=== PATIENT | male | born 1960 | race Caucasian/White ===

== ENCOUNTER 2021-12-07 14:28 | Emergency (ER) | payer BC ==
[2021-12-07] MEDS: Lidocaine 1% 20 ML MDV INJECT ONE (15:55)
[2021-12-07] MEDS: Lidocaine 1% 5 ML VIAL INJECT ONE (15:55)
[2021-12-07] MEDS: Diphtheria,Pertussis(Acell),Tetanus Vaccine 0.5 ML Syringe IM ONE (16:35)
[2021-12-07] MEDS: Bupivacaine 0.5% 10 ML SDV INJECT ONE (18:07)
== END 2021-12-07 17:01 | disposition home or self-care (01) ==
LOC: MW.ED 14:28
DX: S61.217A Laceration without foreign body of left little finger without damage to nail, initial encounter (principal); Z23 Encounter for immunization; W20.8XXA Other cause of strike by thrown, projected or falling object, initial encounter; Y99.0 Civilian activity done for income or pay
CPT/HCPCS: 12001; 73130-26-RT; 73130-RT; 90471; 90715; 99282; 99283-25